=== PATIENT | female | born 1940 | race Two or more races ===

== ENCOUNTER 2025-06-30 12:30 | Emergency (ER) | payer OTHER ==
[~2025-06-30] VITALS: Ht 157.5 cm; Wt 63.5 kg
[2025-06-30] MEDS: SODIUM CHLORIDE 0.9% 500 ML IVB ONE (13:00)
[2025-06-30 13:58] LABS: Hematocrit 41.8 % (36.0-46.0); Hemoglobin 13.9 g/dL (12.2-16.2); Mean Corpuscular Hemoglobin 32.4 pg (28.0-32.0); Mean Corpuscular Volume 97.1 fL (80.0-100.0); Nucleated Red Blood Cells % 0.1 %
[2025-06-30 14:17] LABS: Sodium 144 mmol/L (136-145)
[2025-06-30 14:18] LABS: Anion Gap 11 (5-15); Carbon Dioxide 25 mmol/L (20-31)
[2025-06-30 14:19] LABS: Calcium 9.8 mg/dL (8.7-10.4)
[2025-06-30 14:22] LABS: Chloride 108 mmol/L (98-107); Potassium 5.3 mmol/L (3.5-5.1)
[2025-06-30 14:23] LABS: Glucose 90 mg/dL (74-106)
[2025-06-30 14:24] LABS: BUN/Creatinine Ratio 13.5 (10.0-20.0); Blood Urea Nitrogen 13 mg/dL (9-23)
--- NOTE | 2025-06-30 16:43 | DVH ---
EXAM: CT HEAD WITHOUT CONTRAST INDICATION: aloc TECHNIQUE: CT images of the head were obtained without administration of IV contrast. CT scans at [facility] use dose modulation, iterative reconstruction, and/or weight based dosing when appropriate to reduce radiation dose to as low as reasonably achievable. COMPARISON: None FINDINGS: PARENCHYMA: No acute hemorrhage. There is no mass effect, midline shift, or herniation. There is pres ervation of the lopes white differentiation. Mild scattered hypoattenuation along the periventricular, centrum semiovale, and deep white matter tracts, which are nonspecific however statistically most li jose manuel represent chronic microvascular ischemic change. VENTRICLES: No hydrocephalus. EXTRA-AXIAL SPACES: No extra-axial fluid collections. OTHER: The bony structures are intact. Visualized portions of the paranasal sinuses and mastoid air cells are clear. Degenerative change of bilateral temporomandibular joints. IMPRESSION: 1. No CT evidence of an acute intracranial abnormality.
--- NOTE | 2025-06-30 17:20 | ED.PDOC ---
History of Present Illness HPI Comments 85F BIBA w/ prior MHx of Hx of low Platelets, HTN, High Lipids, Thyroid:SHx of Cataract Sx, Hysterectomy, CAD, Appendectomy and the c/c of confusion. Daughter reports on going home from work when the patient got out of the [email or web address] and started talking in no sense. The daughter brought the pt in to the house and the pt started acting confused and the daughter called EMS. When EMS arrived on scene the pt had a BP of 188/104. Pt informed Dr. Dahl on not taking her medication, having 1 toast to eat today and taking ibuprofen. Daughter notes on this not being the first episode on the pt acting confused.Denies any other symptoms at this time. Denies chills, fever, N/V/D, SOB, CP. Denies any other associated symptom's, modifiers, or recent injuries or sick contact at this time. Chief Complaint: General Weakness Time Seen by MD: 17:15 Reviewed Notes: Nurses Notes, Medications, Allergies Information Source: Patient Mode of Arrival: EMS Severity: Moderate Timing: Minutes Duration: Since onset, Minutes Prehospital treatment: None Past Medical History PAST MEDICAL HISTORY: High Lipids, HTN, Thyroid Past Medical History (Other): Hx of Low Platelets Surgical History: Appendectomy, Hysterectomy Surgical History (Other): Cataract Sx, CAD STUNT PERSON History: No Pertinent STUNT PERSON History Family History Family History: Reviewed,noncontributory to illness, Unknown Social History Smoker: Non-Smoker Alcohol: Occasionally Drugs: Denies Drug Use Lives In: Home Unable to Obtain due to: Altered Mental Status All Other Systems: Reviewed and Negative Physical Exam General Appearance: Mild Distress HEENT: Normal ENT Inspection, Pharynx Normal, TMs Normal Neck: Full Range of Motion, Non-Tender, Normal, Normal Inspection Respiratory: Chest Non-Tender, Lungs Clear, No Accessory Muscle Use, No Respiratory Distress, Normal Breath Sounds Cardiovascular: No Edema, No JVD, No Murmur, No Gallop, Normal Peripheral Pulses, Regular Rate/Rhythm Breast Exam: Deferred Gastrointestinal: No Organomegaly, Non Tender, No Pulsatile Mass, Normal Bowel Sounds, Soft Genitalia: Deferred Pelvic: Deferred Rectal: Deferred Extremities: No calf tenderness, Normal capillary refill, No pedal edema Musculoskeletal : Apperance: Normal Neurologic: Alert, 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 Was a procedure done?: No EKG EKG : Pulse Rate (adult): 75 [place]: Normal Cardiac Rhythm: NSR Differential Dx Considerations may include: Generalized weakness, sepsis, UTI, autonomic dysfunction X-Ray, Labs, Meds, VS Vital Signs Date Time Temp Pulse Resp B/P (MAP) Pulse Ox O2 Delivery O2 Flow Rate FiO2 06/30/25 19:59 75 06/30/25 13:00 98.6 77 18 154/69 97 98.6 Lab Test 06/30/25 19:13 06/30/25 15:52 06/30/25 13:37 Range/Units Urine Color Light-yellow Yellow Urine Clarity Clear Clear Urine pH 5.5 5.0-9.0 Urine Specific [place] 1.007 1.001-1.035 Urine Protein Negative Negative Urine Ketones Negative Negative Urine Blood Negative Negative /uL Urine Nitrite Negative Negative Urine Bilirubin Negative Negative Urine Urobilinogen Normal Negative mg/dL Urine Leukocyte Esterase Trace Negative /uL Urine RBC <1 0 - 4 /hpf Urine Microscopic WBC 1 0-5 /HPF Urine Squamous Epithelial Cells None seen <5 /hpf Urine Bacteria None seen None Seen /hpf Urine Glucose Normal Normal mg/dL Magnesium Level 2.0 1.6-2.6 mg/dL Troponin I High Sensitivity 5 5 </=34 ng/L White Blood Count 5.0 4.4-10.8 10^3/uL Red Blood Count 4.30 4.0-5.20 10^6/uL Hemoglobin 13.9 12.2-16.2 g/dL Hematocrit 41.8 36.0-46.0 % Mean Corpuscular Volume 97.1 80.0-100.0 fL Mean Corpuscular Hemoglobin 32.4 H 28.0-32.0 pg Mean Corpuscular Hemoglobin Concent 33.4 32.0-36.0 g/dL Red Cell Distribution Width 14.6 H 11.8-14.3 % Platelet Count 136 L 140-450 10^3/uL Mean Platelet Volume 7.1 6.9-10.8 fL Neutrophils (%) (Auto) 73.6 37.0-80.0 % Lymphocytes (%) (Auto) 17.6 10.0-50.0 % Monocytes (%) (Auto) 7.4 0.0-12.0 % Eosinophils (%) (Auto) 1.2 0.0-7.0 % Basophils (%) (Auto) 0.2 0.0-2.0 % Neutrophils # (Auto) 3.7 1.6-8.6 10 ^3/uL Lymphocytes # (Auto) 0.9 0.4-5.4 10 ^3/uL Monocytes # (Auto) 0.4 0-1.3 10 ^3/uL Eosinophils # (Auto) 0.1 0-0.8 10 ^3/uL Basophils # (Auto) 0 0-0.2 10 ^3/uL Nucleated Red Blood Cells 0.1 % Sodium Level 144 136-145 mmol/L Potassium Level 5.3 H 3.5-5.1 mmol/L Chloride Level 108 H 98-107 mmol/L Carbon Dioxide Level 25 20-31 mmol/L Anion Gap 11 5-15 Blood Urea Nitrogen 13 9-23 mg/dL Creatinine 0.96 0.550-1.02 mg/dL Glomerular Filtration Rate Calc 58 >90 mL/min BUN/Creatinine Ratio 13.5 10.0-20.0 Serum Glucose 90 74-106 mg/dL Calcium Level 9.8 8.7-10.4 mg/dL Plasma/Serum Blood Alcohol < 3.0 <10 mg/dL Current Medications Medications (Trade) Dose Ordered Sig/Neelam Route Start Time Stop Time Status Last Admin Sodium Chloride 500 ml @ 500 mls/hr Q1H ONCE IVB 06/30/25 13:00 06/30/25 13:59 DC 06/30/25 13:00 CAT scan of the head is negative The patient was given normal saline at a 500 cc bolus The chemistry panel shows hyperkalemia at 5.3. The patient's alcohol level is negative The CBC is within normal limits. The urine test is negative for infection We did speak with [facility] (Dr. Lyons) They are going to transfer the patient to their facility. The authorization #[id number] Images Reviewed?: Images reviewed and evaluated by me Time of 1ST Reevaluation: 17:45 Reevaluation 1ST: Unchanged Patient Education/Counseling: Diagnosis, Treatment, Prognosis Family Education/Counseling: Diagnosis, Treatment, Prognosis SEPSIS Sepsis Screen Physician Orders Head Without Contrast (06/30/25 12:50) Metallurgical Tester (06/30/25 12:50) Pulse Oximetry (06/30/25 12:50) Blood Pressure (06/30/25 12:50) Heplock Iv (06/30/25 12:50) Electrocardigram (06/30/25 12:50) Electrocardigram (06/30/25 13:50) Electrocardigram (06/30/25 15:50) Vital Signs Date Time Temp Pulse Resp B/P (MAP) Pulse Ox O2 Delivery O2 Flow Rate FiO2 06/30/25 19:59 75 06/30/25 13:00 98.6 77 18 154/69 97 98.6 Laboratory Tests Test 06/30/25 13:37 White Blood Count 5.0 10^3/uL (4.4-10.8) Medications Medications Dose Ordered Sig/Neelam Route Start Time Stop Time Status Last Admin Dose Admin Sodium Chloride 500 ml @ 500 mls/hr Q1H ONCE IVB 06/30/25 13:00 06/30/25 13:59 DC 06/30/25 13:00 Departure 1 Departure Time of Disposition: 19:57 Impression: Primary Impression: Autonomic dysfunction Disposition: 51 HOSPICE/MEDICAL FACILITY Condition: Fair Critical Care Note Critical Care Time?: No Stability Stability form required: Yes Stable for transfer: Intended for transfer (Health plan request transfer), To designated facility Heart Score Heart Score: Heart Score Response (Comments) Value History N/A 0 EKG N/A 0 Age N/A 0 Risk Factors N/A 0 Troponin N/A 0 Total 0 I personally scribed for NEFTALI DAHL MD ([email or web address]) on 06/30/25 at 17:20. Electronically submitted by David Mondragon ([email or web address]). NEFTALI DAHL MD Jun 30, 2025 17:20
[2025-06-30 19:43] LABS: Urine Protein, UAD Negative (Negative)
[2025-06-30 21:40] VITALS: BP 161/94; PULSE 98; RESP 16; TEMP 98.2; O2SAT 96
== END 2025-06-30 20:05 | disposition short-term general hospital (02) ==
LOC: EDBD 12:30 → ER 12:36
DX: G90.9 Disorder of the autonomic nervous system, unspecified (principal); F10.90 Alcohol use, unspecified, uncomplicated; E78.5 Hyperlipidemia, unspecified; I10 Essential (primary) hypertension; I25.10 Atherosclerotic heart disease of native coronary artery without angina pectoris; Z90.710 Acquired absence of both cervix and uterus; Z90.49 Acquired absence of other specified parts of digestive tract
CPT/HCPCS: 36415; 70450; 80048; 80320; 81001; 83735; 84484; 85025; 99285; J7040